=== PATIENT | male | born 1965 | race Caucasian/White ===

== ENCOUNTER 2022-11-05 10:38 | Emergency (ER) | payer SELFPAY ==
[2022-11-05 10:55] VITALS: BP 114/75; PULSE 90; RESP 18; TEMP 36.8; O2SAT 95; BMI 24.9
--- NOTE | 2022-11-05 11:13 | ED.ABDPAIN ---
HPI - Abdominal Pain General Time Seen by Provider: 11:13 Date Seen: 11/05/22 Chief Complaint: Abdominal Pain Stated Complaint: Abdominal pain Time Seen by Provider: 11/05/22 11:13 Source: patient and RN notes reviewed Mode of arrival: ambulatory Limitations: no limitations History of Present Illness HPI narrative: Patient is a 57-year-old male with history of daily marijuana use who comes to the [facility] for evaluation regarding abdominal pain nausea vomiting and diarrhea. Patient had the onset of vomiting and diarrhea on WednesdayOctober 31. It has persisted since that time and is associated with intermittent abdominal pain. Patient notes that yesterday he was feeling okay but then suddenly everything came back again. He describes pain in his upper abdomen as sharp and stabbing. He notes that this sort of thing happens 3 to 4 times a year and he has seen 1 physician in the past who made him feel like he was ?stupid?. He has never had blood work or any imaging. Patient notes that when this happens to him he feels very hot and cold and will break out in a sweat. He states he usually then sleeps 2-3 hours hour with some improvement. He has not really noticed any weight loss over the past year and has no history of Crohn's disease or ulcerative colitis in his history or his family's history. He snow has not noticed any blood in vomit or stool. He has not had any abdominal surgeries in the past and still retains his gallbladder. Patient notes he is actually feeling better right now in attributes this to being out in fresh air. He had not been outside of his house for the past 5 days. Patient has not taken any medication for this. He endorses marijuana use of approximately 10 ?1 hitters during the course of a day. He has not had any change increase or decrease of that amount. He denies alcohol use and any other drug use. He does smoke 8-10 cigarettes daily. Patient notes no recent travel, consumption of uncooked meats, or recent antibiotic use. Related Data Previous Rx's Medication Instructions Recorded omeprazole magnesium 10 mg oral 20 mg PO DAILY #30 ea 11/05/22 suspension,delayed release ondansetron 4 mg disintegrating 4 mg PO Q8H #15 tabs 11/05/22 tablet ondansetron 4 mg disintegrating 4 mg PO Q8H #30 tabs 11/05/22 tablet Allergies Allergy/AdvReac Type Severity Reaction Status Date / Time No Known Drug Allergies Allergy Verified 11/05/22 14:51 Review of Systems Status of ROS Reports: 10 or more systems reviewed and unremarkable except as noted in History and below Const Reports: chills, fatigue and night sweats Eyes Denies: change in vision ENMT Denies: throat pain, neck pain, throat swelling, difficulty swallowing or hoarseness Cardio Denies: chest pain, palpitations, swelling of feet/ankles or shortness of breath with exertion Resp Denies: shortness of breath or cough GI Reports: abdominal pain, nausea, vomiting and diarrhea; Denies: difficulty swallowing or blood in stool Denies: painful urination Musculo Denies: neck pain Integ/Breast Denies: rash Endo Reports: fatigue Allergy/Immuno Denies: throat swelling PFSH PFSH Social History Smoking Status: Current some day smoker What tobacco products do you use: cigarettes Smoking packs per day: 0.5 Smoking cigarettes per day: 10.0 Second hand tobacco smoke exposure: No How often do you have a drink containing alcohol: never How often do you have six or more drinks on one occasion: Never AUDIT-C Alcohol total score: 0 Non-prescribed substance use: marijuana (any form) service: No Exam Narrative: Exam Narrative: Patient is alert and oriented. Seems somewhat frustrated at being here. Eyes are clear lips are dry neck is supple heart with a regular rate and rhythm. Lungs are clear. Abdomen is soft there is no tenderness with palpation. Moving all extremities. Mentating normally. Looks fatigued but is nontoxic in appearance. Const: Vital Signs, click to edit/add: Vital Signs - 24 hr 11/05/22 10:55 11/05/22 13:29 Temperature 98.2 F Pulse Rate [Pulse Oximeter] 90 79 Respiratory Rate 18 18 Blood Pressure [Ri ght Upper Arm] 114/75 102/82 Pulse Oximetry 95 97 Oxygen Delivery Me thod Room Air Room Air Documenting provider has reviewed patient's vital signs: yes Course Course Hospital Course: At this time differential diagnosis includes biliary colic gastritis, gastric ulcer, intermittent bowel obstruction, gastroenteritis, hyper emesis secondary to THC,. He patient will have blood draw to include CBC, comprehensive panel, lipase, CRP, urinalysis. IV placement with 1 L of normal saline. At this time patient is not nauseated nor does he have any pain. Reevaluation(s) Reevaluation #1: Patient currently receiving normal saline. Noted some mild discomfort and did suggest the use of omeprazole but he states he cannot take pills on an empty stomach and therefore given Protonix 40 mg IV. 2 L now running. Discussed with him normal laboratory findings but given the fact that he has had ongoing pain intermittently and pain today is worse do feel that it would be appropriate to offer further imaging and he does accept CT of the abdomen. Vital Signs Vital signs: Initial Vital Signs Temperature 98.2 F 11/05/22 10:55 Temperature Source Temporal Artery Scan 11/05/22 10:55 Pulse Rate 90 11/05/22 10:55 Respiratory Rate 18 11/05/22 10:55 Blood Pressure 114/75 11/05/22 10:55 Blood Pressure Mean 88 11/05/22 10:55 Blood Pressure Position Sitting 11/05/22 10:55 Pulse Oximetry 95 11/05/22 10:55 Oxygen Delivery Method Room Air 11/05/22 10:55 Vital Signs Temperature 98.2 F 11/05/22 10:55 Pulse Rate 90 11/05/22 10:55 Respiratory Rate 18 11/05/22 10:55 Blood Pressure 114/75 11/05/22 10:55 Pulse Oximetry 95 11/05/22 10:55 Oxygen Delivery Method Room Air 11/05/22 10:55 Temperature 98.2 F 11/05/22 10:55 Pulse Rate 79 11/05/22 13:29 Respiratory Rate 18 11/05/22 13:29 Blood Pressure 102/82 11/05/22 13:29 Pulse Oximetry 97 11/05/22 13:29 Oxygen Delivery Method Room Air 11/05/22 13:29 MDM - Abdominal Pain MDM Narrative Medical decision making narrative: 1. Duodenitis-this is discussed with the surgeon on-call at this time suggestion for continued use of a PPI and then upper endoscopy and colonoscopy after 3-4 weeks time have passed. Orders have been placed. Omeprazole 20 mg liquid sent to the pharmacy. 2. Nausea vomiting diarrhea-no episodes here in the emergency room. Zofran 4 mg ODT q.8 hours p.r.n. 15. Sent to the pharmacy. 3. Disposition-home at this time. No work until November 11. Rest push fluids. Recommend very bland foods that are soft and no solid food until he has been feeling better for at least 72 hours. If he has worsening pain especially with bleeding vomiting return to the emergency room. Have advised patient to decrease use of tobacco and marijuana Lab Data Attestation: I reviewed the patient's lab results. Labs: Lab Results 11/05/22 11/05/22 Range/Units 11:42 13:30 WBC 9.83 (4.50-11.00) K/uL RBC 5.65 (4.30-5.90) m/uL Hgb 16.7 (13.5-17.5) gm/dL Hct 48.0 (37.0-53.0) % MCV 85 (80-100) fL MCH 30 (26-34) pg MCHC 35 (32-36) gm/dL RDW Coeff of Diomedes 11.8 (11.5-15.5) % Plt Count 411 (140-440) K/uL Neut % (Auto) 67.8 (42.0-72.0) % Lymph % (Auto) 22.2 (20-44) % [place] % (Auto) 8.3 (0.0-11.0) % Eos % (Auto) 0.8 (0.0-7.0) % Baso % (Auto) 0.6 (0.0-3.0) % Neut # (Auto) 6.66 (1.7-7.0) K/uL Lymph # (Auto) 2.18 (0.90-2.90) K/uL [place] # (Auto) 0.80 (0.00-0.90) K/UL Eos # (Auto) 0.08 (0.00-0.50) K/uL Baso # (Auto) 0.06 (0.00-0.30) K/uL Sodium 133 L (135-149) mmol/L Potassium 3.5 L (3.6-5.1) mmol/L Chloride 97 (96-114) mmol/L Carbon Dioxide 26 (20-32) mmol/L BUN 18 (7-30) mg/dL Creatinine 1.0 (0.5-1.5) mg/dL Estimated Creat Clear 92.11 Estimated GFR 88 ml/min Glucose 106 (60-115) mg/dL Lactate 1.1 (0.5-1.9) mmol/L Calcium 9.0 (8.4-10.6) mg/dL Magnesium 1.9 (1.5-2.6) mg/dL Total Bilirubin 0.8 (0.1-1.5) mg/dL AST 24 (12-35) U/L ALT 29 (4-50) U/L Alkaline Phosphatase 62 (40-150) U/L C-Reactive Protein 0.6 (0.5-1.0) mg/dL Total Protein 7.4 (6.0-8.3) g/dL Albumin 4.3 (3.3-5.0) g/dL Lipase 185 (23-300) U/L Urine Color Dark yellow (Yellow) Urine Appearance Clear (Clear) Urine pH 6.0 (5.0-8.5) Ur Specific [place] >= 1.030 (1.000-1.030) Urine Protein Trace A (Negative) Urine Glucose (UA) Negative (Negative) Urine Ketones Negative (Negative) Urine Blood Negative (Negative) Urine Nitrite Negative (Negative) Urine Bilirubin Negative (Negative) Urine Urobilinogen 1.0 (0.2-1.0) Ur Leukocyte Esterase Negative (Negative) Urine RBC 0-2 (0-2) Urine WBC 0-2 (0-5) Ur Squamous Epith Cells Few (None-Few) Urine Bacteria None (None) Imaging Data CT scan - abdomen: Attestation: I have reviewed the pertinent imaging results. Radiologist's impression: Lower chest: Unremarkable. Liver: Unremarkable. Normal in size and attenuation. No suspicious masses. Gallbladder and bile ducts: Unremarkable. No stones or inflammation. No biliary dilatation. Pancreas: Unremarkable. No mass or inflammation. Spleen: Unremarkable. Normal in size. No masses. Adrenal glands: Unremarkable. No nodules. Kidneys: Unremarkable. No suspicious masses, stones, or hydronephrosis. GI tract: No bowel obstruction. Moderate fluid within 1st and 2nd portion the duodenum with slight apparent wall thickening and hyper enhancement. No significant surrounding inflammatory change. Remainder of the small bowel normal. Normal appendix. No diverticular disease Vasculature: Abdominal aorta is normal in caliber. Mesenteric arteries are patent. Lymph nodes: No lymphadenopathy. Peritoneum/Abdominal Wall: Unremarkable. No sign of mass or infiltration. No free air or significant free fluid. Pelvis: Unremarkable. Bones: The degenerative spondylosis. No suspicious osseous lesion. IMPRESSION: Moderate fluid within the proximal duodenum with slight apparent wall thickening and hyper enhancement, but without significant surrounding inflammatory change. This is nonspecific, but could reflect duodenitis. Remainder of the bowel appears normal. Discharge Plan Discharge Clinical Impression: Abdominal pain, vomiting, and diarrhea Patient Disposition: Home, Self-Care Condition: Improved Additional Instructions: Because it would be difficult for you to take pills, I have called in a prescription for liquid omeprazole. This will help control stomach acid. Will also have available for you Zofran which is for nausea. Please push fluids, soft foods and avoid spicy foods at this time. I have placed an order for an upper endoscopy and colonoscopy here. Await phone calls for this. Return to the emergency room for persistent vomiting, blood in stool, worsening symptoms and as needed. Prescriptions: New ondansetron 4 mg tablet,disintegrating 4 mg PO Q8H Qty: 15 0RF ondansetron 4 mg tablet,disintegrating 4 mg PO Q8H Qty: 30 0RF omeprazole magnesium 10 mg susp,delayed release for recon 20 mg PO DAILY Qty: 30 0RF Follow Up/Referrals: Provider,Not a Local [Primary Care Provider] - Stand Alone Forms: [facility] Info Instructions
[2022-11-05] MEDS: 0.9 % SODIUM CHLORIDE 1000 ml 1,000 ML IV ×2 (11:45→13:47)
[2022-11-05 11:51] LABS: Lactate* 1.1 mmol/L (0.5-1.9)
[2022-11-05 11:52] LABS: Basophils Absolute Auto 0.06 K/uL (0.00-0.30); Basophils Percent Auto 0.6 % (0.0-3.0); Eosinophils Absolute Auto 0.08 K/uL (0.00-0.50); Eosinophils Percent Auto 0.8 % (0.0-7.0); Hemoglobin* 16.7 gm/dL (13.5-17.5); Immature Granulocytes Abs Auto 0.03 K/uL (0.00-0.30); Immature Granulocytes Pct Auto 0.3 %; Lymphocytes Absolute Auto 2.18 K/uL (0.90-2.90); Lymphocytes Percent Auto 22.2 % (20-44); Mean Corpuscular HGB Conc 35 gm/dL (32-36); Mean Corpuscular Hemoglobin 30 pg (26-34); Mean Corpuscular Volume 85 fL (80-100); Monocytes Percent Auto 8.3 % (0.0-11.0); Neutrophils Absolute Auto 6.66 K/uL (1.7-7.0); Neutrophils Percent Auto 67.8 % (42.0-72.0); Platelet Count* 411 K/uL (140-440); RDW Coefficient of Variation % 11.8 % (11.5-15.5); Red Blood Count 5.65 m/uL (4.30-5.90); White Blood Count* 9.83 K/uL (4.50-11.00)
[2022-11-05 11:57] LABS: Slide Review Reflex No
[2022-11-05 12:15] LABS: Albumin* 4.3 g/dL (3.3-5.0); Chloride* 97 mmol/L (96-114)
[2022-11-05 12:16] LABS: Potassium* 3.5 mmol/L (3.6-5.1); Sodium* 133 mmol/L (135-149)
[2022-11-05 12:17] LABS: Est. Creatinine Clearance* 92.11; Estimated Glomerular Filt Rate 88 ml/min
[2022-11-05 12:18] LABS: Alkaline Phosphatase* 62 U/L (40-150); Aspartate Amino Transferase* 24 U/L (12-35); Bilirubin Total* 0.8 mg/dL (0.1-1.5); Carbon Dioxide* 26 mmol/L (20-32); Lipase* 185 U/L (23-300); Total Protein* 7.4 g/dL (6.0-8.3)
[2022-11-05 12:19] LABS: Alanine Aminotransferase* 29 U/L (4-50); Blood Urea Nitrogen* 18 mg/dL (7-30); Glucose* 106 mg/dL (60-115); Magnesium* 1.9 mg/dL (1.5-2.6)
[2022-11-05 12:21] LABS: C Reactive Protein* 0.6 mg/dL (0.5-1.0)
[2022-11-05 13:29] VITALS: BP 102/82; PULSE 79; RESP 18; O2SAT 97
[2022-11-05 13:41] LABS: Appearance Urine Clear (Clear); Bilirubin Urine Negative (Negative); Blood Urine Negative (Negative); Color Urine Dark yellow (Yellow); Glucose Urine Negative (Negative); Ketones Urine Negative (Negative); Leukocyte Esterase Urine Negative (Negative); Nitrite Urine Negative (Negative); Protein Urine Trace (Negative); Specific Gravity Urine >= 1.030 (1.000-1.030)
[2022-11-05 13:49] LABS: RBC Urine 0-2 (0-2); Squamous Epithelial Cell Urine Few (None-Few); WBC Urine 0-2 (0-5)
--- NOTE | 2022-11-05 14:27 | CRLHL7_ITS ---
For Patients: As a result of the Century Cures Act, medical imaging exams and procedure reports are released immediately into your electronic medical record. You may view this report before your referring provider. If you have questions, please contact your health care provider. INDICATION: Abdominal pain, epigastric pain with diarrhea and vomiting. TECHNIQUE: CT abdomen and pelvis acquired with 93 cc Isovue 370 IV contrast. COMPARISON: None. FINDINGS: Lower chest: Unremarkable. Liver: Unremarkable. Normal in size and attenuation. No suspicious masses. Gallbladder and bile ducts: Unremarkable. No stones or inflammation. No biliary dilatation. Pancreas: Unremarkable. No mass or inflammation. Spleen: Unremarkable. Normal in size. No masses. Adrenal glands: Unremarkable. No nodules. Kidneys: Unremarkable. No suspicious masses, stones, or hydronephrosis. GI tract: No bowel obstruction. Moderate fluid within 1st and 2nd portion the duodenum with slight apparent wall thickening and hyper enhancement. No significant surrounding inflammatory change. Remainder of the small bowel normal. Normal appendix. No diverticular disease Vasculature: Abdominal aorta is normal in caliber. Mesenteric arteries are patent. Lymph nodes: No lymphadenopathy. Peritoneum/Abdominal Wall: Unremarkable. No sign of mass or infiltration. No free air or significant free fluid. Pelvis: Unremarkable. Bones: The degenerative spondylosis. No suspicious osseous lesion. IMPRESSION: Moderate fluid within the proximal duodenum with slight apparent wall thickening and hyper enhancement, but without significant surrounding inflammatory change. This is nonspecific, but could reflect duodenitis. Remainder of the bowel appears normal. Please note that all CT scans at this facility use dose modulation, iterative reconstruction, and/or weight-based dosing when appropriate to reduce radiation dose to as low as reasonably achievable. Dictated by Mina Villa MD @ 11/05/2022 3:25:52 PM (Electronically Signed)
[2022-11-05] MEDS: ONDANSETRON 2 MG/ML inj 4 MG IVP (14:44)
[2022-11-05] MEDS: PANTOPRAZOLE SODIUM 40 MG INJ IVP (14:44)
== END 2022-11-05 16:24 | disposition home or self-care (01) ==
PROVIDERS: Emergency Provider Family Medicine
DX: R11.2 Nausea with vomiting, unspecified (principal); K29.80 Duodenitis without bleeding
CPT/HCPCS: 36415; 74177; 80053; 81001; 83605; 83690; 83735; 85025; 86140; 96374; 96375; 99284; C9113; J2405; J7030; Q9967